=== PATIENT | female | born 1950 | race Caucasian/White ===

== ENCOUNTER 2017-03-31 21:41 | Inpatient (IN) | payer OTHER ==
[~2017-03-31] VITALS: Ht 152.4 cm; Wt 86.6 kg
--- NOTE | ~2017-03-31 | HC ---
[facility] [place] [address] CONSULTATION Name: RUFINO DOMÍNGUEZ Clementina Room #: 464-P [facility] IN ..#: [id number] Admission: 03/31/17 Attend Phys: Thanh Castro MD Discharge: Date of : 46 Report #: [id number] THIS REPORT FOR: //name// CC: Jt Castro REASON FOR CONSULTATION: Shortness of breath. HISTORY OF PRESENT ILLNESS: The patient is a nice 66-year-old woman with a history of hypertension, diabetes and dyslipidemia. She was recently identified as having very severe left ventricular dysfunction and congestive heart failure. This responded very nicely to SALVATORE inhibitor, carvedilol, and diuretic therapy. She was seen in the office last week and doing well with plans for escalation in her carvedilol dosing. Last night, she developed a severe coughing and wheezing. Her cough is productive of white foaming sputum. She denies recurrent orthopnea or paroxysmal nocturnal dyspnea. She continues to be wheezy despite steroids and albuterol treatments throughout the night. She was hypoxemic when she presented to the emergency department. Her chest x-ray was clear and CT angiography demonstrated no evidence of pulmonary emboli. The patient denies chest heaviness, pressure or ischemic type symptoms. She denies palpitations, near syncope or syncope. ALLERGIES: She is allergic to CODEINE. MEDICATIONS: Include lovastatin 40 mg daily, Prevacid 30 mg daily, potassium 10 mEq daily, Aldactone 25 mg daily, Zestril 10 mg daily, carvedilol 3.125 mg twice daily, torsemide 20 mg twice daily, glimepiride 2 mg twice daily and aspirin, nicotine patch, metformin 500 mg daily and Spiriva. PAST MEDICAL HISTORY: Medical records have been reviewed and include a history of cholecystectomy, tubal ligation, carpal tunnel release, rotator cuff repair. SOCIAL HISTORY: She is a lifelong smoker. She quit about 2 weeks ago. FAMILY HISTORY: Unremarkable for premature coronary disease. REVIEW OF SYSTEMS: All systems negative except as that noted above. PHYSICAL EXAMINATION: GENERAL: A pleasant woman in no distress. VITAL SIGNS: Blood pressure is 118/56, heart rate of 85 and regular. She is afebrile, 5 feet tall, 191 pounds. HEENT: There is neither xanthelasma, subcutaneous xanthomata, oral mucosal or digital cyanosis or kyphoscoliosis present. CHEST: Reveals diffuse inspiratory and expiratory wheezes. CARDIAC: Regular rate and rhythm with normal S1, S2. Jugular venous pressure [facility] [address] [place] [address] CONSULTATION Name: RUFINO DOMÍNGUEZ Room #: 464-P [facility]#: [id number] Admission: 03/31/17 Attend Phys: Thanh Castro MD Discharge: Date of : 46 Report #: [id number] is not elevated. ABDOMEN: Soft and nontender. EXTREMITIES: With trace edema. Radial pulses are 2+. NEUROLOGIC: She is alert with a nonfocal exam. LABORATORY DATA: Sodium 135, potassium 4.6, creatinine 1.3. Troponin negative. ProBNP of 404. White count 11.9, hemoglobin 12, hematocrit 40, platelet count 312. Hemoglobin A1c of 7.5. Chest x-ray is normal. EKG, sinus rhythm. IMPRESSION: 1. Probable chronic obstructive pulmonary disease exacerbation. 2. Idiopathic cardiomyopathy, ejection fraction 10% to 15%. 3. Chronic systolic heart failure. 4. Hypertension. 5. Diabetes. 6. Chronic kidney disease. 7. Tobacco dependency. 8. Dyslipidemia. RECOMMENDATIONS: 1. Resume usual heart failure medications. 2. Discontinue IV fluids. 3. Pulmonary evaluation for probable COPD exacerbation. I have discussed these issues with the patient and her . Thank you for asking me to participate in her care. I believe that her current volume status is stable. <ELECTRONICALLY SIGNED> By: Per Ortiz MD, [facility] 04/03/17 1619 0750 1125 Per Ortiz MD, FACC /nt
--- NOTE | ~2017-03-31 | EKG ---
[address] [address] ELECTROCARDIOGRAM REPORT Name: SANGRUFINO Clementina Room #: 464-P [facility] IN .R.#: [id number] Admission: 03/31/17 Attend Phys: Thanh Castro MD Discharge: Date of : 46 Report #: [id number] THIS REPORT FOR: //name// [facility] ED Test Date: 2017-03-31 Test Time: 22:02:23 Pat Name: RUFINO DOMÍNGUEZ Department: Room: 464 Gender: F Internal Medicine Hospitalist: [id number] : 1950 Requested By: Nickolas Serna Order Number: [id number] MD: Per Ortiz Measurements Intervals [place] Rate: 114 P: 64 [place]: 142 QRS: 21 QRSD: 98 T: QT: 343 QTc: 473 Interpretive Statements Sinus tachycardia Nonspecific repol abnormality, diffuse leads Baseline wander in lead(s) V1,V6 No previous ECG available for comparison Electronically Signed On 04-02-2017 8:39:22 CDT by Per Ortiz [email or web address] <ELECTRONICALLY SIGNED> By: Per Ortiz MD, [facility] 04/02/17 0839 01 01 Per Ortiz MD, [facility] /EPI
--- NOTE | ~2017-03-31 | HC ---
[facility] [place] [address] CONSULTATION Name: RUFINO DOMÍNGUEZ Room #: 464-P ADM IN .R.#: [id number] Admission: 03/31/17 Attend Phys: Thanh Castro MD Discharge: Date of : 48 Report #: [id number] THIS REPORT FOR: //name// CC: Jt Castro DATE OF SERVICE: 04/03/2017 ATTENDING PHYSICIAN: Dr. Thanh Castro. REASON FOR CONSULTATION: The patient is a 66-year-old female seen in consultation for Dr. Geovanny Trejo for evaluation and management of uncontrolled type 2 diabetes mellitus. HISTORY OF PRESENT ILLNESS: This very pleasant elderly lady has been a diabetic for over 20 years. She is under the care of Dr. Jt Chawla and has been taking oral hypoglycemic agents metformin and glimepiride. She readily admits to poor diabetes self management and glycemic control seems to have been somewhat suboptimal. Here in the hospital, her hemoglobin A1c was noted to be 7.5. She is currently on prednisone therapy for COPD and blood glucose readings have been ranging in the 300-400s. Endocrine consultation has been requested for further management. The patient was admitted 3 days ago with exacerbation of COPD. Presently, she is on oral steroids and antibiotics. She had an acute spike in her creatinine level, but it is felt to be prerenal as well as effect of exposure to contrast dye on admission. Her cardiac condition has been assessed by Dr. Ortiz and apparently, the patient has cardiomyopathy with heart failure and ejection fraction close to 10%. She has a 10-lfxo-mxcu history of cigarette smoking and quit about 3 weeks ago. On admission, she had been noted to have lactic acidosis and this in conjunction with her cardio-renal status, led to discontinuation of metformin. She has been receiving NovoLog on a sliding scale and tonight has been administered Levemir 15 units at bedtime. The patient has not been through formal diabetes education classes. She is unsure about carbohydrate counting or distribution. SMBG at home has been sporadic. She does get annual dilated eye exams and is known to have cataracts, but denies any history of retinopathy. She reports mild paresthesia of the feet, but has not had any foot lesions or toenail fungus. She denied any polydipsia or polyuria. She recalls having had normal TFTs. It is unclear if she has had proteinuria in the past, but on admission her serum creatinine was slightly elevated and spiked following the CT scan with contrast dye. She is known to have hyperlipidemia and hypertension. PAST MEDICAL HISTORY: 1[place] [address] CONSULTATION Name: RUFINO DOMÍNGUEZ Room #: 464-P [facility] IN ..#: [id number] Admission: 03/31/17 Attend Phys: Thanh Castro MD Discharge: Date of : 46 Report #: [id number] 2. Type 2 diabetes mellitus. 3. Cardiomyopathy; heart failure. 4. Smoker; COPD. 5. Dyslipidemia. 6. Acute renal insufficiency. PAST SURGICAL HISTORY: Cholecystectomy, rotator cuff repair, carpal tunnel release, tubal ligation. MEDICATIONS AT HOME: Albuterol MDI, Spiriva HandiHaler, lovastatin 40 mg at bedtime, lansoprazole 30 mg daily, potassium chloride 10 mEq daily, spironolactone 25 mg daily, lisinopril 10 mg at bedtime, carvedilol 3.125 mg b.i.d., torsemide 20 mg b.i.d., glimepiride 2 mg b.i.d., metformin 500 mg b.i.d., aspirin 81 mg daily, nicotine 21 mg patch daily. ALLERGIES: CODEINE. SOCIAL HISTORY: The patient is and lives at home with her . She is employed as a manager business banking. She has been a heavy smoker for almost 59 years. She denied any alcohol or other drug use. FAMILY MEDICAL HISTORY: Notable for type 2 diabetes mellitus in her paternal grandmother and type 1 diabetes in her maternal grandmother. She is unaware of a family history of any other endocrinopathy. REVIEW OF SYSTEMS: Essentially notable for the features mentioned in the HPI. She was admitted with an exacerbation of COPD. Denies any hemoptysis. No recent fever or chills. Has had mild sinus congestion. Denied sore throat or earache. No anterior neck swelling or pain. No dysphonia, dysphagia or orthopnea. Has not had any recent tremulousness, palpitations or diaphoretic episodes. Her appetite has been fair and bowel habits are normal. She denied any abdominal pain. No recent dysuria or strangury. No recent arthralgia or myalgia. She denied any skin rashes. She does have mild paresthesia of the feet. Denies any seizures or syncope. She does not have any bleeding diathesis. Other ROS is negative. PHYSICAL EXAMINATION: GENERAL: This is a very pleasant elderly lady who is alert, oriented, and lying in bed. General exam revealed her to be obese. Hydration status is fair. There is no obvious mucosal pallor, scleral icterus, peripheral cyanosis, or clubbing. VITAL SIGNS: Her temperature is 98 degrees Fahrenheit, pulse rate is 88, blood pressure is 137/90, respiratory rate is 18, O2 sat is 96% on room air. Her height is 5 feet, weight is 191 pounds. HEENT: Normocephalic. EOMI. PEARLA. Funduscopic exam was not done at this time. No ophthalmic signs of thyroid disease. Oropharyngeal mucosa is somewhat [facility] [address] [place] [address] CONSULTATION Name: RUFINO DOMÍNGUEZ Room #: 464-P ADM IN ..#: [id number] Admission: 03/31/17 Attend Phys: Thanh Castro MD Discharge: Date of : 48 Report #: [id number] dry. NECK: Supple. No masses, tenderness or bruit. HEART: Heart tones are regular. LUNGS: Revealed diminished air entry at the bases with few rhonchi. ABDOMEN: Soft, obese, nontender. EXTREMITIES: No tremulousness. There is 1+ bilateral pedal edema. NEUROLOGIC: No focal deficits. SKIN: Grossly normal. LABORATORY DATA: White count is 17.9, hemoglobin 12.5, hematocrit 39.0, platelets 341. Sodium 139, potassium 3.4, chloride 98, CO2 29, anion gap 12, BUN 35, creatinine 1.8, lactic acid 1.9, serum calcium 9.2. On admission, the serum creatinine was 1.3 and lactic acid was 3.3. Her hemoglobin A1c is 7.5. UA is notable for 3+ glucose, but negative for ketones or protein. ASSESSMENT: 1. Longstanding type 2 diabetes mellitus with suboptimal glycemic control - exacerbated by steroid therapy. 2. Exacerbation of chronic obstructive pulmonary disease; hypoxemic respiratory failure. 3. Cardiomyopathy; heart failure (ejection fraction 10%). 4. Hypertension. 5. Tobacco dependency. 6. Dyslipidemia. 7. Acute on chronic renal insufficiency. PLAN: 1. Counseled the patient about diabetes and principles of self management. We will request diabetes nurse educator consult. 2. Agree with starting Levemir and using mealtime NovoLog. We will adjust the doses. 3. It might be worthwhile trying her on NPH insulin while she is on oral steroid therapy. 4. She is not a candidate for metformin or sulfonylurea therapy. At this time, other oral hypoglycemic agents also seem to have some relative contraindication. We will plan on q.i.d. insulin for now and as her general condition improves, modify the plan as needed. I appreciate this opportunity to be of assistance in your patient's care. Thank you very much for this consultation. <ELECTRONICALLY SIGNED> By: Smita Machado MD 04/04/171999 2148 0109 Smita Machado MD /nt
--- NOTE | ~2017-03-31 | HC ---
[facility] [place] [address] CONSULTATION Name: RUFINO DOMÍNGUEZ Clementina Room #: 464-P [facility] IN M.R.#: [id number] Admission: 03/31/17 Attend Phys: Thanh Castro MD Discharge: 04/05/17 Date of : 48 Report #: [id number] THIS REPORT FOR: //name// CC: Per Ortiz MD [facility] Jt Castro DATE OF SERVICE: 04/01/2017 REFERRING PROVIDER: Per Ortiz MD [facility] REASON FOR CONSULTATION: COPD exacerbation. CHIEF COMPLAINT: Cough and shortness of breath. HISTORY OF PRESENT ILLNESS: Our group was asked to see the patient in consultation while hospitalized at [facility]. A pleasant 66-year-old woman with a past pulmonary history significant for long-standing history of asthma, she states as a child; also history of COPD, been an active smoker until about 3 weeks ago, had been having some increasing cough, congestion, and wheezing, recently diagnosed with cardiomyopathy. However, because of increasing symptoms, she presented to the emergency department and subsequently admitted for acute exacerbation of COPD. While in the emergency room, additional workup included a CT scan of the chest for PE protocol this morning, which has revealed emphysema. There are no significant infiltrates, some small noncalcified nodules noted, nothing for pulmonary edema noted. The patient is now on systemic steroids with antibiotics as well as bronchodilators at home. She is typically on Spiriva daily, provided by her primary care provider, Dr. Chawla as well as danitza albuterol. ALLERGIES: Include CODEINE. PAST MEDICAL HISTORY: 1. COPD, severity unquantified. 2. History of congestive heart failure associated with systolic dysfunction. 3. History of tobacco abuse. 4. Diabetes mellitus type 2. OUTPATIENT MEDICATIONS: Include Spiriva, metformin, nicotine patch, aspirin, glimepiride, torsemide, carvedilol, lisinopril, spironolactone, potassium, lansoprazole, and lovastatin. SOCIAL HISTORY: The patient was an active smoker up until about 2 weeks ago. No significant alcohol consumption. FAMILY HISTORY: Negative for any significant pulmonary disease. [facility] [address] [place] [address] CONSULTATION Name: NESTOR DOMÍNGUEZBETZAIDA Mcrae Room #: 464-P [facility] IN [facility]#: [id number] Admission: 03/31/17 Attend Phys: Thanh Castro MD Discharge: 04/05/17 Date of : 46 Report #: [id number] REVIEW OF SYSTEMS: Rest of 12-point review of systems is normal. PHYSICAL EXAMINATION: VITAL SIGNS: Afebrile, pulse 80, respiratory rate in the 20s, blood pressure 118/56, and oxygen saturation 95% on 2 liters. GENERAL: This is an obese, elderly woman in no distress. ENT: Clear oropharynx, Mallampati 3 airway. No thrush. NECK: Supple. No lymphadenopathy. LUNGS: Diminished, prolonged expiratory phase, diffuse expiratory wheezes noted. CARDIOVASCULAR: Heart regular. No murmurs or gallops noted. ABDOMEN: Obese, soft, nontender, no masses. EXTREMITIES: With trace edema. LABORATORY DATA: Chest x-ray and CT scan as described in HPI, most consistent with emphysema, no acute process. White blood cell count was 12,000, hemoglobin 12, hematocrit 40, and platelet count 312. Arterial blood gas done on 2 liters revealed pH 7.44, pCO2 of 43, pO2 of 69, and bicarbonate 28. Chemistry profile reveals sodium 135, potassium 4.6, chloride 96, bicarbonate 32, BUN 29, creatinine 1.3, glucose 216, and proBNP is 404. Troponin is negative. IMPRESSION: 1. Acute exacerbation of chronic obstructive pulmonary disease. 2. Acute hypoxemic respiratory failure secondary to above. 3. Recently diagnosed systolic congestive heart failure with significant left ventricular dysfunction. 4. Diabetes mellitus type 2. 5. History of tobacco abuse. Currently, smoke free for about the last 2 weeks. SUGGEST: 1. Continue smoking cessation efforts. 2. Systemic steroid taper. 3. At some point, cardiac catheterization to further evaluate systolic dysfunction. 4. May needed change in the long-acting inhaled medications. 5. Mobilize as tolerated. 6. Additional recommendations to follow. Thank you for requesting our suggestions. <ELECTRONICALLY SIGNED> By: Nile Zamora MD 04/08/17 1254 1134 2242 Nile Zamora MD /nt
--- NOTE | ~2017-03-31 | HC ---
[facility] [place] [address] CONSULTATION Name: RUFINO DOMÍNGUEZ Clementina Room #: 464-P ADM IN .R.#: [id number] Admission: 03/31/17 Attend Phys: Thanh Castro MD Discharge: Date of : 48 Report #: [id number] THIS REPORT FOR: //name// CC: Jt Castro DATE OF SERVICE: 04/03/2017 REASON FOR CONSULTATION: Elevating creatinine. HISTORY OF PRESENT ILLNESS: This 66-year-old patient recently found to have markedly decreased left ventricular ejection fraction with symptoms of heart failure, was admitted to the hospital with fluid overload and shortness of breath. Initial chest x-ray did not show pulmonary edema or congestive heart failure. The patient had a CT angiogram and underwent diuresis. Creatinine was 1.3 and has risen to 1.8. Overall, I and O's have been negative 5 or 6 L. PAST MEDICAL HISTORY: She has had 20 years of diabetes, no peripheral neuropathy, no history of retinopathy. She wanted oral agents over that period of time. She has also had longstanding cigarette smoking, pretty heavy smoker with a diagnosis of COPD and she has had multiple orthopedic surgeries including rotator cuff, carpal tunnel, sugar fingers, her left great toe replaced with titanium hemant. FAMILY HISTORY: Positive for diabetes and heart disease. Brother with renal stones. SOCIAL HISTORY: Heavy smoker as mentioned, no alcohol. HOME MEDICATIONS: Initially listed as his albuterol inhaler, lovastatin 40 mg daily, lansoprazole 30 mg daily, potassium 10 mEq daily, spironolactone 25 mg daily, lisinopril 10 mg at bedtime, carvedilol 3.125 mg b.i.d., torsemide 20 mg b.i.d., glimepiride 2 mg daily, aspirin 81 mg daily, metformin 500 mg b.i.d., and Spiriva. REVIEW OF SYSTEMS: GENERAL: She has been feeling poorly. EYES: No difficulties with the vision. ENT: Hearing okay. Swallowing okay. Denies mouth ulcers. ENDOCRINE: Positive for the diabetes. RESPIRATORY: Easily short-winded with cough. CARDIAC: Decreased ejection fraction, but no angina. She had the swelling in the legs as mentioned. GASTROINTESTINAL: No nausea, vomiting, diarrhea or bloody stools. [address] [address] CONSULTATION Name: RUFINO DOMÍNGUEZ Room #: [address] [place] [address].#: [id number] Admission: 03/31/17 Attend Phys: Thanh Castro MD Discharge: Date of : 46 Report #: [id number] GENITOURINARY: No dysuria, hematuria, or renal stones. NEUROLOGIC: No seizure, syncope or stroke. SKELETAL: She has had diffuse arthritic symptoms, but does not use none steroidals. PHYSICAL EXAMINATION: VITAL SIGNS: This is an elderly patient, looking older than her stated age. SKIN: Unremarkable. SKELETAL: Somewhat obese. HEENT: Extraocular movements are full. Vision is intact. No scleral icterus. Hearing is intact. Mucous membranes are moist. NECK: Supple, no carotid bruits are heard. CHEST: Clear to auscultation. HEART: Regular without murmurs, gallops or rubs. ABDOMEN: Soft and nontender. Liver edge full just below the right costal margin. EXTREMITIES: Show no peripheral edema. NEUROLOGIC: Grossly intact. LABORATORY DATA: Initial urinalysis was very dilute sample, did show glycosuria only. No proteinuria, cancer cells. The hemoglobin is 12.5. The sodium was 139, potassium 3.4, chloride 98, bicarbonate 29, creatinine 1.8, BUN was 35. Creatinine was 1.3 at time of admission. ASSESSMENT AND PLAN: Acute on chronic kidney disease. She may have some underlying chronic kidney disease due to her longstanding diabetes, possibly some degree of cardiorenal syndrome with decreased left ventricular ejection fraction and possibly now with decreased blood pressure from the treatment for her heart failure as well. For completeness, renal sonogram and paraprotein studies are assessed. We will not do any in depth serologic studies at this time. This is likely a combination of treatment of her heart failure combined with the dye load from the pulmonary CT angiogram done earlier and likely we will get some resolution. We agree with the gentle IV fluids being given back at the current time and stopping the spironolactone and torsemide at the current time. We will certainly follow closely along with your. <ELECTRONICALLY SIGNED> By: Timothy Rainey MD 04/04/17 1115 1001 2109 Timothy Rainey MD /nt
[~2017-03-31 21:41] MED LIST: GLIPIZIDE ER5 MG PO; GLUCOPHAGE500 MG PO; LOVASTATIN 20 M20 MG PO; MUCINEX600 MG PO; NICODERM CQ1 EAC1; NORCO 5-325 TA1 EACH PO; PERCOCET 5-3251 EACH PO; PREDNISONE 10 M10 M1 PO; PRILOSEC 20 MG20 MG PO; SPIRIVA INH; TRAMADOL 50 MG50 MG PO; VENTOLIN HFA 1818 GM INH
[2017-03-31 21:50] VITALS: BP 109/62
[2017-03-31 22:52] LABS: ABG SAMPLE TYPE ARTERIAL; BE(vivo) 3.3 mmol/L (-2 to +3); LACTATE 2.94 mmol/L (0.5-2.0); O2Hb 92.6 % (92.0-98.0); PCO2 42.5 mmHg (35.0-45.0); PO2 68.8 mmHg (80.0-100.0); pH 7.436 (7.360-7.450); sO2 94.3 % (92.0-98.0); tCO2 29.3 mmol/L (24.0-30.0)
[2017-03-31 22:53] LABS: STICK SITE RBA
[2017-03-31 23:07] LABS: ABSOLUTE NEUTROPHILS 8.7 thou/uL (1.4-8.2); BASOPHILS 0.9 % (0.0-2.0); EOSINOPHILS 3.2 % (0.0-3.0); HEMATOCRIT 39.3 % (37.0-47.0); HEMOGLOBIN 12.8 gm/dL (12.0-15.0); LYMPHOCYTES 18.1 % (24.0-44.0); MCH 25.5 pg (26.0-34.0); MCHC 32.6 g/dL (28.0-37.0); MCV 78.4 fL (80.0-100.0); MONOCYTES 7.7 % (1.0-8.0); PLATELET COUNT 335 thou/uL (150-400); POLYS 70.1 % (36.0-66.0); RBC 5.01 mil/uL (4.20-5.00); RDW 16.7 % (10.5-14.5); WBC 12.4 thou/uL (4.0-11.0)
[2017-03-31 23:11] LABS: ANION GAP 7 mmol/L (7-16); BUN 29 mg/dL (7-18); CALCIUM 8.9 mg/dL (8.5-10.1); CHLORIDE 96 mmol/L (98-107); CO2 32 mmol/L (21-32); CREATININE 1.3 mg/dL (0.6-1.0); GLUCOSE 216 mg/dL (74-106); POTASSIUM 4.6 mmol/L (3.5-5.1); SODIUM 135 mmol/L (136-145)
[2017-03-31 23:23] LABS: NT-PRO BRAIN NAT PEPTIDE 404 pg/mL (<300); TROPONIN-I < 0.04 ng/mL (<0.04-0.07)
[2017-03-31 23:24] LABS: MANUAL DIFF NO
[2017-04-01 01:37] VITALS: BP 115/69
[2017-04-01] MEDS ORDERED: LANSOPRAZOLE15 MG PO (02:15)
[2017-04-01] MEDS ORDERED: ALDACTONE25 MG PO (02:16)
[2017-04-01] MEDS ORDERED: KLOR-CON 1010 MEQ PO (02:16)
[2017-04-01] MEDS ORDERED: ZESTRIL10 MG PO (02:17)
[2017-04-01] MEDS ORDERED: COREG3.125 MG PO (02:18)
[2017-04-01] MEDS ORDERED: DEMADEX20 MG PO (02:19)
[2017-04-01] MEDS ORDERED: AMARYL2 MG PO (02:20)
[2017-04-01] MEDS ORDERED: ASPIR 8181 MG PO (02:21)
[2017-04-01 02:24] VITALS: BP 122/44
[2017-04-01] MEDS ORDERED: NICOTINE TRANSD21 M1 (03:00)
[2017-04-01 03:19] LABS: HEMATOCRIT 40.5 % (37.0-47.0); HEMOGLOBIN 12.8 gm/dL (12.0-15.0); MCHC 31.5 g/dL (28.0-37.0); MCV 79.4 fL (80.0-100.0); RBC 5.1 mil/uL (4.20-5.00); WBC 11.9 thou/uL (4.0-11.0)
[2017-04-01 07:34] VITALS: BP 118/56
[2017-04-01 12:20] VITALS: BP 131/55
[2017-04-01 16:06] VITALS: BP 142/57
[2017-04-01 20:37] VITALS: BP 135/61
[2017-04-02 04:24] VITALS: BP 125/59
[2017-04-02 08:08] VITALS: BP 128/54
[2017-04-02 11:45] VITALS: BP 141/69
[2017-04-02 12:17] LABS: ABG SAMPLE TYPE ARTERIAL; BE(vivo) 4.2 mmol/L (-2 to +3); HCO3 27.6 mmol/L (22.0-26.0); PCO2 37.2 mmHg (35.0-45.0); pH 7.488 (7.360-7.450); sO2 94.9 % (92.0-98.0); tCO2 28.7 mmol/L (24.0-30.0)
[2017-04-02 12:19] LABS: LACTATE 4.34 mmol/L (0.5-2.0); STICK SITE L.BRACHIAL
[2017-04-02 12:31] LABS: CALCIUM 9.1 mg/dL (8.5-10.1); CREATININE 1.6 mg/dL (0.6-1.0); POTASSIUM 4.9 mmol/L (3.5-5.1)
[2017-04-02 12:33] LABS: HEMOGLOBIN 12.5 gm/dL (12.0-15.0); MCH 25.2 pg (26.0-34.0); MCHC 32.1 g/dL (28.0-37.0); MCV 78.3 fL (80.0-100.0); RBC 4.98 mil/uL (4.20-5.00); RDW 16.9 % (10.5-14.5); WBC 17.9 thou/uL (4.0-11.0)
[2017-04-02 14:36] LABS: URINE BILIRUBIN NEGATIVE (Negative); URINE BLOOD NEGATIVE (Negative); URINE COLOR YELLOW; URINE GLUCOSE-RANDOM* 3+ (Negative); URINE KETONES NEGATIVE (Negative); URINE LEUKOCYTES-REFLEX NEGATIVE (Negative); URINE PROTEIN (DIPSTICK) NEGATIVE (Negative); URINE SPECIFIC GRAVITY <= 1.005 (1.003-1.035); URINE UROBILINOGEN 0.2 E.U./dl (0.2-1.0)
[2017-04-02 15:45] VITALS: BP 124/51
[2017-04-02 19:11] VITALS: BP 121/49
[2017-04-03 02:00] LABS: CALCIUM 9.2 mg/dL (8.5-10.1); CREATININE 1.8 mg/dL (0.6-1.0)
[2017-04-03 02:19] LABS: POTASSIUM 3.4 mmol/L (3.5-5.1)
[2017-04-03 04:36] VITALS: BP 112/62
[2017-04-03 08:13] VITALS: BP 110/55
[2017-04-03 11:16] VITALS: BP 99/64
[2017-04-03 16:35] VITALS: BP 122/55
[2017-04-03 20:14] VITALS: BP 137/61
[2017-04-04 03:07] LABS: GLYCOHEMOGLOBIN (HGB A1C) 9.7 % (4.8-5.6)
[2017-04-04 03:08] VITALS: BP 125/57
[2017-04-04 05:53] LABS: ALBUMIN 3.5 g/dL (3.4-5.0); CREATININE 1.1 mg/dL (0.6-1.0)
[2017-04-04 06:07] LABS: URINE CREATININE-RANDOM* 18.4 mg/dL (Not Estab.); URINE PROTEIN-RANDOM* 6.1 mg/dL (Not Estab.)
[2017-04-04 07:50] VITALS: BP 148/69
[2017-04-04 12:07] LABS: KAPPA FREE LIGHT CHAINS 15.8 mg/L (3.30-19.40); KAPPA/LAMBDA RATIO 1.25 (0.26-1.65); LAMBDA FREE LIGHT CHAINS 12.6 mg/L (5.71-26.30)
[2017-04-04 14:05] VITALS: BP 135/72
[2017-04-04 18:04] VITALS: BP 127/55
[2017-04-04 19:18] VITALS: BP 133/67
[2017-04-05 03:38] VITALS: BP 150/76
[2017-04-05 08:00] VITALS: BP 144/62
[2017-04-05 11:39] LABS: HEMATOCRIT 41.7 % (37.0-47.0); HEMOGLOBIN 13.2 gm/dL (12.0-15.0); MCH 25.3 pg (26.0-34.0); MCHC 31.7 g/dL (28.0-37.0); MCV 79.8 fL (80.0-100.0); RBC 5.23 mil/uL (4.20-5.00); RDW 16.9 % (10.5-14.5)
[2017-04-05 11:49] LABS: CALCIUM 9.3 mg/dL (8.5-10.1); CREATININE 1.3 mg/dL (0.6-1.0); POTASSIUM 4.2 mmol/L (3.5-5.1)
[2017-04-05 12:00] VITALS: BP 138/75
[2017-04-05 12:46] VITALS: BP 149/62
[2017-04-05] MEDS ORDERED: MUCINEX TA600 MG/TA1 PO (13:33)
[2017-04-05] MEDS ORDERED: NOVOLIN N100 UNIT/3 SUBQ (13:34)
[2017-04-05] MEDS ORDERED: LANTUS100 UNIT/M SUBQ (13:35)
[2017-04-05] MEDS ORDERED: HUMALOG100 UNIT/1 SUBQ (13:42)
[2017-04-05] MEDS ORDERED: LEVAQUIN 750 M750 MG PO (13:44)
[2017-04-05] MEDS ORDERED: PREDNISONE 10 M10 MG PO (13:44)
[2017-04-05 14:08] VITALS: BP 150/76
[2017-04-05] MEDS ORDERED: DUONEB 2.5-0.5 M3 ML INH (14:23)
[2017-04-08 10:06] LABS: A/G RATIO 1.2 (0.7-1.7); ALBUMIN 3.3 g/dL (2.9-4.4); ALPHA 1 0.2 g/dL (0.0-0.4); BETA 0.9 g/dL (0.7-1.3); GAMMA 0.8 g/dL (0.4-1.8); M-SPIKE Not Observed g/dL (Not Observed)
== END 2017-04-05 16:39 | disposition home or self-care (01) | DRG 682 ==
LOC: ER 21:41 → 4W 23:43 → EROBS 23:43 → 4W 04-01 01:38
PROVIDERS: Internal Medicine; Internal Medicine Nephrology; Internal Medicine Pulmonary Disease; Nurse Practitioner
DX: N17.9 Acute kidney failure, unspecified (principal); J96.01 Acute respiratory failure with hypoxia; J44.1 Chronic obstructive pulmonary disease with (acute) exacerbation; I13.0 Hypertensive heart and chronic kidney disease with heart failure and stage 1 through stage 4 chronic kidney disease, or unspecified chronic kidney disease; I50.22 Chronic systolic (congestive) heart failure; I42.8 Other cardiomyopathies; E11.22 Type 2 diabetes mellitus with diabetic chronic kidney disease; J01.90 Acute sinusitis, unspecified; E11.65 Type 2 diabetes mellitus with hyperglycemia; T38.0X5A Adverse effect of glucocorticoids and synthetic analogues, initial encounter; N18.3 Chronic kidney disease, stage 3 (moderate); E78.5 Hyperlipidemia, unspecified; F17.210 Nicotine dependence, cigarettes, uncomplicated; E66.9 Obesity, unspecified; Z68.37 Body mass index [BMI] 37.0-37.9, adult; Z79.82 Long term (current) use of aspirin; Z79.84 Long term (current) use of oral hypoglycemic drugs; Z79.899 Other long term (current) drug therapy; Y92.89 Other specified places as the place of occurrence of the external cause; Z90.49 Acquired absence of other specified parts of digestive tract; Z88.8 Allergy status to other drugs, medicaments and biological substances; Z83.3 Family history of diabetes mellitus; Z84.89 Family history of other specified conditions; Z82.49 Family history of ischemic heart disease and other diseases of the circulatory system
CPT/HCPCS: 10040

== ENCOUNTER → 2017-05-02 | Outpatient (CLI) | payer OTHER ==
[~2017-05-02] VITALS: Ht 154.9 cm; Wt 86.6 kg
[~2017-05-02] MED LIST changes: +ALDACTONE25 MG PO; +AMARYL2 MG PO; +ASPIR 8181 MG PO; +COREG3.125 MG PO; +DEMADEX20 MG PO; +DUONEB 2.5-0.5 M3 ML INH; +HUMALOG100 UNIT/1 SUBQ; +KLOR-CON 1010 MEQ PO; +LANSOPRAZOLE15 MG PO; +LANTUS100 UNIT/M SUBQ; +LEVAQUIN 750 M750 MG PO; +LEVEMIR SUBQ; +MUCINEX TA600 MG/TA1 PO; +NICOTINE TRANSD21 M1; +NOVOLIN N100 UNIT/3 SUBQ; +PREDNISONE 10 M10 MG PO; +ZESTRIL10 MG PO; +ZYRTEC10 M5 PO
--- NOTE | ~2017-05-02 | CATHLAB ---
[facility] [place] [address] INVASIVE PROCEDURE REPORT Name: SANGRUFINO PADRONNE Room #: REG CL [facility]#: [id number] Admission: 05/02/17 Attend Phys: Per Ortiz, Discharge: Date of : 46 Date of Service: 05/02/17 0947 Report #: [id number] THIS REPORT FOR: //name// CC: Per Chawla PROCEDURE: Left heart coronary angiography. INDICATIONS: Shortness of breath, congestive heart failure and cardiomyopathy. DESCRIPTION OF PROCEDURE: The potential benefits and risks of the procedure were discussed at length with the patient, who understood. Full written and informed consent was obtained. The patient was brought into the catheterization suite, where her right groin was prepped and draped in a sterile fashion. She was sedated with intravenous Versed. Xylocaine 1% was used as local anesthetic. A 6-Prydeinig sheath was placed in the right femoral artery by the modified Seldinger technique. Left heart catheterization was performed with the 6-Prydeinig angled pigtail catheter. A single plain ventriculogram was performed in the PARKER view. Pullback gradients were measured across the aortic valve. Selective coronary angiography was performed with a 6-Prydeinig left and right 4 cm Luis coronary catheter. All diagnostic catheters were removed. A hand injection was performed through the right groin sheath with placement of a Mynx device upon removal of the sheath. The patient remained in excellent condition at the conclusion of the procedure, with good right groin hemostasis and intact distal pulses. RESULTS: LEFT HEART HEMODYNAMICS: 1. Left ventricular systolic pressure 140. 2. Left ventricular end-diastolic pressure of 14. 3. Aortic valve, no gradient was present on pullback across the aortic valve, central aortic pressure of 140/70. ANGIOGRAPHY: LEFT VENTRICULOGRAM: Ventriculography demonstrated moderate left ventricular dysfunction. Ejection fraction was estimated at 40%. Mitral regurgitation was absent. SELECTIVE CORONARY ANGIOGRAPHY: 1. LEFT MAIN: The left main was short, but normal. 2. LEFT ANTERIOR DESCENDING: Left anterior descending was a large vessel that extended to the mid inferior wall. The LAD exhibited mild proximal calcific plaquing, without significant stenosis. 3. CIRCUMFLEX: The circumflex was large and codominant. The circumflex was comprised of 2 large marginal branches. The mid circumflex before the second marginal branch exhibited 40% to at most 50% stenosis. Both marginal branches appeared to be angiographically normal. [facility] [address] [place] [address] INVASIVE PROCEDURE REPORT Name: RUFINO DOMÍNGUEZ Room #: REG [facility]#: [id number] Admission: 05/02/17 Attend Phys: Per Ortiz, Discharge: Date of : 46 Date of Service: 05/02/17 0947 Report #: [id number] 4. RIGHT CORONARY: The right coronary was codominant and appeared to be angiographically normal. SUMMARY: 1. Moderate left ventricular dysfunction. The ejection fraction was estimated at 40%-45%. Mitral regurgitation was absent. 2. Normal left main. 3. Mild plaquing of the left anterior descending. 4. The mid circumflex exhibited a 40% to at most 50% midvessel stenosis. 5. The right coronary was codominant and angiographically normal. Based on this study, continued pharmacologic therapy and risk factor modification is recommended. <ELECTRONICALLY SIGNED> By: Per Ortiz MD, [facility] 05/02/17 1244 [id number] Per Ortiz MD, [facility] /nt
[2017-05-02 07:13] VITALS: BP 117/42
== END | disposition home or self-care (01) ==
LOC: CATH 06:31
DX: I50.20 Unspecified systolic (congestive) heart failure (principal); I42.9 Cardiomyopathy, unspecified; E11.9 Type 2 diabetes mellitus without complications; Z79.4 Long term (current) use of insulin; J42 Unspecified chronic bronchitis; I10 Essential (primary) hypertension; M19.90 Unspecified osteoarthritis, unspecified site; K57.90 Diverticulosis of intestine, part unspecified, without perforation or abscess without bleeding; Z90.49 Acquired absence of other specified parts of digestive tract; J44.9 Chronic obstructive pulmonary disease, unspecified; Z87.891 Personal history of nicotine dependence; Z98.890 Other specified postprocedural states

== ENCOUNTER → 2017-08-21 | Outpatient (CLI) | payer OTHER | LOC: CAT 08:16 | DX: R91.1 Solitary pulmonary nodule (principal) ==

== ENCOUNTER → 2020-01-18 | Outpatient (CLI) | payer MEDICARE | LOC: SJCVC 10:26 | DX: I25.10 Atherosclerotic heart disease of native coronary artery without angina pectoris (principal); I11.0 Hypertensive heart disease with heart failure; I50.32 Chronic diastolic (congestive) heart failure; E78.5 Hyperlipidemia, unspecified; E11.9 Type 2 diabetes mellitus without complications; G47.30 Sleep apnea, unspecified; M10.9 Gout, unspecified; Z79.4 Long term (current) use of insulin ==

== ENCOUNTER → 2020-07-14 | Outpatient (CLI) | payer MEDICARE | LOC: SJCVCIMAG 06:42 | PROVIDERS: ATTEND Internal Medicine | DX: I25.10 Atherosclerotic heart disease of native coronary artery without angina pectoris (principal); I44.0 Atrioventricular block, first degree; I11.0 Hypertensive heart disease with heart failure; I50.32 Chronic diastolic (congestive) heart failure; E78.5 Hyperlipidemia, unspecified; J42 Unspecified chronic bronchitis; E11.9 Type 2 diabetes mellitus without complications; G47.30 Sleep apnea, unspecified; M10.9 Gout, unspecified; Z79.4 Long term (current) use of insulin; Z79.899 Other long term (current) drug therapy; Z87.891 Personal history of nicotine dependence ==

== ENCOUNTER → 2021-02-06 | Outpatient (CLI) | payer MEDICARE | LOC: SJCVC 12:45 | PROVIDERS: ATTEND Internal Medicine | DX: I25.10 Atherosclerotic heart disease of native coronary artery without angina pectoris (principal); I11.0 Hypertensive heart disease with heart failure; I50.32 Chronic diastolic (congestive) heart failure; E78.5 Hyperlipidemia, unspecified; E11.9 Type 2 diabetes mellitus without complications; G47.30 Sleep apnea, unspecified; M10.9 Gout, unspecified; J44.9 Chronic obstructive pulmonary disease, unspecified; Z90.49 Acquired absence of other specified parts of digestive tract; Z98.890 Other specified postprocedural states; Z88.8 Allergy status to other drugs, medicaments and biological substances; Z79.4 Long term (current) use of insulin; Z79.82 Long term (current) use of aspirin; Z79.899 Other long term (current) drug therapy; Z87.891 Personal history of nicotine dependence ==

== ENCOUNTER → 2021-08-16 | Outpatient (CLI) | payer OTHER | LOC: SJCVC 14:24 | PROVIDERS: ATTEND Internal Medicine | DX: I25.10 Atherosclerotic heart disease of native coronary artery without angina pectoris (principal); E78.5 Hyperlipidemia, unspecified; J42 Unspecified chronic bronchitis; E11.22 Type 2 diabetes mellitus with diabetic chronic kidney disease; I50.32 Chronic diastolic (congestive) heart failure; G47.33 Obstructive sleep apnea (adult) (pediatric); Z79.4 Long term (current) use of insulin; Z87.891 Personal history of nicotine dependence; Z79.82 Long term (current) use of aspirin; Z79.899 Other long term (current) drug therapy; Z88.5 Allergy status to narcotic agent; Z88.1 Allergy status to other antibiotic agents ==